=== PATIENT | female | born 1945 | race Caucasian/White ===

== ENCOUNTER 2018-12-07 07:35 | Outpatient (CLI) | payer OTHER ==
--- NOTE | 2018-12-07 10:48 | MRI ---
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 Confusion, memory loss. FINDINGS: No restricted diffusion is seen. There are multiple foci of T2 prolongation in the periventricular w peña matter, consistent with chronic small-vessel ischemic disease. No evidence of infarct, hemorrha ge, mass, midline shift, or abnormal extraaxial fluid collections is seen. The ventricular size is a ppropriate and the basilar cisterns patent. No abnormal postcontrast enhancement is seen. The visual ized paranasal sinuses are well aerated. There is a tiny amount of free fluid in the mastoid air bhupinder ls. IMPRESSION: 1. No evidence of acute intracranial process or mass. 2. Chronic small-vessel ischemic disease. POS: [facility]
== END 2018-12-07 07:36 | disposition home or self-care (01) ==
LOC: SCSMRI 07:35
PROVIDERS: ATTEND Psychiatry & Neurology Neurology
DX: I66.09 Occlusion and stenosis of unspecified middle cerebral artery (principal); I67.82 Cerebral ischemia
CPT/HCPCS: 70553; 82565

== ENCOUNTER 2021-03-06 11:10 | Outpatient (CLI) | payer MEDICARE | END 2021-03-06 11:11 | disposition home or self-care (01) | LOC: BICMAMMO 11:10 | PROVIDERS: ATTEND Internal Medicine Endocrinology, Diabetes & Metabolism | DX: M81.0 Age-related osteoporosis without current pathological fracture (principal); M85.89 Other specified disorders of bone density and structure, multiple sites | CPT/HCPCS: 77080 ==